=== PATIENT | female | born 1990 | race Caucasian/White ===

== ENCOUNTER 2017-05-01 07:24 | Inpatient (IN) | payer OTHER ==
[~2017-05-01] VITALS: Ht 160 cm; Wt 102.7 kg
[2017-05-01] VITALS (56 sets, daily range): BP systolic 91–166; BP diastolic 53–102
[2017-05-01 09:04] LABS: BASOPHIL COUNT 0.1 K/uL (0-0.1); EOSINOPHIL COUNT 0.1 K/uL (0-0.3); HEMATOCRIT 38.9 % (36.0-46.0); IMMATURE GRANULOCYTE (%) 0.6 % (0.0-0.7); IMMATURE GRANULOCYTE COUNT 0.1 K/uL; INSTRUMENT ABS NEUTROPHIL CT 7.7 K/uL; LYMPHOCYTE COUNT 1.7 K/uL (1.0-2.8); MCH 28.3 PG (29.0-34.0); MCHC 32.9 G/DL (30.0-36.0); MCV 85.9 FL (83-99); MEAN PLAT.VOLUME 12.4 uM^3 (9.5-12.4); MONOCYTE (%) 5.6 % (3-12); MONOCYTE COUNT 0.6 K/uL (0-0.8); NEUTROPHIL (%) 75.3 % (45-76); NEUTROPHIL COUNT 7.7 K/uL (1.8-6.4); PLATELET COUNT 203 K/uL (156-360); RBC DIS.WIDTH-CV 14.5 % (11.8-14.6); RBC DIS.WIDTH-SD 45.1 % (39-53); RED BLOOD COUNT 4.53 M/uL (3.80-5.20); WHITE BLOOD COUNT 10.2 K/uL (4.1-10.2)
[2017-05-01] MEDS ORDERED: ZANTAC150 MG PO (10:24)
[2017-05-01] MEDS ORDERED: PRENATAL + DHA1 EAC1 PO (10:24)
[2017-05-02] VITALS (10 sets, daily range): BP systolic 111–148; BP diastolic 67–90
[2017-05-02] MEDS ORDERED: ENDOCET 5-3251 EACH PO (08:54)
[2017-05-02] MEDS ORDERED: IBUPROFEN800 MG PO (08:54)
[2017-05-03 06:04] LABS: HEMATOCRIT 27.8 % (36.0-46.0); MCH 27.6 PG (29.0-34.0); MCV 86.3 FL (83-99); RBC DIS.WIDTH-CV 14.6 % (11.8-14.6); RBC DIS.WIDTH-SD 45.5 % (39-53); WHITE BLOOD COUNT 12.7 K/uL (4.1-10.2)
[2017-05-03 06:11] LABS: RED BLOOD COUNT 3.22 M/uL (3.80-5.20)
[2017-05-03 07:19] VITALS: BP 110/58
[2017-05-03 07:58] LABS: EOSINOPHIL (%) 0.5 % (0-5); EOSINOPHIL COUNT 0.1 K/uL (0-0.3); IMMATURE GRANULOCYTE (%) 0.6 % (0.0-0.7); IMMATURE GRANULOCYTE COUNT 0.1 K/uL; INSTRUMENT ABS NEUTROPHIL CT 9.4 K/uL; LYMPHOCYTE COUNT 2.4 K/uL (1.0-2.8); MEAN PLAT.VOLUME 12.4 uM^3 (9.5-12.4); MONOCYTE (%) 5.9 % (3-12); MONOCYTE COUNT 0.8 K/uL (0-0.8); NEUTROPHIL (%) 73.7 % (45-76); NEUTROPHIL COUNT 9.4 K/uL (1.8-6.4); PLAT.SUFFICIENCY DECREASED
[2017-05-03 08:01] LABS: PLATELET COUNT 131 K/uL (156-360)
[2017-05-03 11:48] VITALS: BP 100/51
[2017-05-03 15:13] VITALS: BP 110/71
== END 2017-05-05 14:18 | disposition home health service (06) | DRG 765 ==
LOC: LDRP-OP 07:24 → 2WEST 07:25 → LDRP-OP 05-20 10:14
PROVIDERS: Advanced Practice Midwife; Obstetrics & Gynecology
PROC: 3E0P7GC Introduction of Other Therapeutic Substance into Female Reproductive, Via Natural or Artificial Opening (ICD-10-PCS; 2017-05-01)
PROC: 3E0S3BZ Introduction of Anesthetic Agent into Epidural Space, Percutaneous Approach (ICD-10-PCS; 2017-05-01)
PROC: 10D00Z1 Extraction of Products of Conception, Low, Open Approach (ICD-10-PCS; principal; 2017-05-02)
DX: O48.0 Post-term pregnancy (principal); O10.02 Pre-existing essential hypertension complicating childbirth; D62 Acute posthemorrhagic anemia; Z68.41 Body mass index [BMI] 40.0-44.9, adult; O99.214 Obesity complicating childbirth; Z37.0 Single live birth; Z3A.41 41 weeks gestation of pregnancy; O77.0 Labor and delivery complicated by meconium in amniotic fluid; O61.0 Failed medical induction of labor; O62.1 Secondary uterine inertia; L30.9 Dermatitis, unspecified; O99.72 Diseases of the skin and subcutaneous tissue complicating childbirth; E66.9 Obesity, unspecified; K21.9 Gastro-esophageal reflux disease without esophagitis; O76 Abnormality in fetal heart rate and rhythm complicating labor and delivery; O99.02 Anemia complicating childbirth; O99.62 Diseases of the digestive system complicating childbirth; O99.824 Streptococcus B carrier state complicating childbirth; K58.9 Irritable bowel syndrome, unspecified; Z88.2 Allergy status to sulfonamides; Z80.3 Family history of malignant neoplasm of breast; Z80.6 Family history of leukemia; Z80.7 Family history of other malignant neoplasms of lymphoid, hematopoietic and related tissues; Z82.49 Family history of ischemic heart disease and other diseases of the circulatory system; Z80.43 Family history of malignant neoplasm of testis; Z82.61 Family history of arthritis; Z82.0 Family history of epilepsy and other diseases of the nervous system
CPT/HCPCS: 85025; 88307; C1755; G0378; J0690; J1170; J2175; J2274; J2405; J2540; J2795; J3010; J7120

== ENCOUNTER 2017-05-29 19:54 | Inpatient (IN) | payer OTHER ==
[~2017-05-29] VITALS: Ht 160 cm; Wt 93.8 kg
[~2017-05-29 19:54] MED LIST: ENDOCET 5-3251 EACH PO; IBUPROFEN800 MG PO; PRENATAL + DHA1 EAC1 PO; ZANTAC150 MG PO
[2017-05-29 20:26] LABS: BASOPHIL (%) 0.4 % (0-1); BASOPHIL COUNT 0.1 K/uL (0-0.1); EOSINOPHIL (%) 1.8 % (0-5); EOSINOPHIL COUNT 0.3 K/uL (0-0.3); HEMATOCRIT 25.6 % (36.0-46.0); LYMPHOCYTE (%) 25.5 % (15-42); LYMPHOCYTE COUNT 4.4 K/uL (1.0-2.8); MCH 27.7 PG (29.0-34.0); MCHC 31.3 G/DL (30.0-36.0); MCV 88.6 FL (83-99); MONOCYTE COUNT 0.7 K/uL (0-0.8); NEUTROPHIL (%) 67.3 % (45-76); NEUTROPHIL COUNT 11.7 K/uL (1.8-6.4); RBC DIS.WIDTH-SD 45.2 % (39-53); RED BLOOD COUNT 2.89 M/uL (3.80-5.20); WHITE BLOOD COUNT 17.4 K/uL (4.1-10.2)
[2017-05-29 20:27] LABS: PLATELET COUNT 352 K/uL (156-360)
[2017-05-29 20:34] LABS: CHLORIDE 113 mEq/L (99-109); POTASSIUM 3.6 mEq/L (3.7-5.4); SODIUM 141 mEq/L (136-147)
[2017-05-29 20:36] LABS: GLUCOSE 207 mg/dL (70-99)
[2017-05-29 20:39] LABS: GFR ESTIMATE (CALCULATED) > 59 mL/min/
[2017-05-29 20:40] LABS: UREA NITROGEN (BUN) 18 mg/dL (9-23)
[2017-05-29] MEDS ORDERED: IRON325 M1 PO (23:48)
[2017-05-30] VITALS (7 sets, daily range): BP systolic 96–133; BP diastolic 53–67
[2017-05-30 07:33] LABS: HEMATOCRIT 24.9 % (36.0-46.0); HEMOGLOBIN 7.9 G/DL (11.9-15.5); MCH 28.1 PG (29.0-34.0); MCHC 31.7 G/DL (30.0-36.0); MCV 88.6 FL (83-99); RBC DIS.WIDTH-CV 14.3 % (11.8-14.6); RED BLOOD COUNT 2.81 M/uL (3.80-5.20); WHITE BLOOD COUNT 13.5 K/uL (4.1-10.2)
[2017-05-30 08:01] LABS: PLAT.SUFFICIENCY ADEQUATE
[2017-05-30 08:35] LABS: PLATELET COUNT 228 K/uL (156-360)
== END 2017-05-30 18:00 | disposition home or self-care (01) | DRG 776 ==
LOC: EME 19:54 → 2EAST 23:20 → EDOF 23:20 → ENRESERV 23:39 → 2EAST 05-30 02:32
PROVIDERS: Emergency Medicine; Obstetrics & Gynecology
PROC: 30233N1 Transfusion of Nonautologous Red Blood Cells into Peripheral Vein, Percutaneous Approach (ICD-10-PCS; principal; 2017-05-29)
DX: O99.03 Anemia complicating the puerperium (principal); D62 Acute posthemorrhagic anemia; N93.9 Abnormal uterine and vaginal bleeding, unspecified; I95.9 Hypotension, unspecified; I10 Essential (primary) hypertension; E66.9 Obesity, unspecified; Z68.36 Body mass index [BMI] 36.0-36.9, adult; Z88.2 Allergy status to sulfonamides
CPT/HCPCS: 74000; 76856; 80048; 85025; 85027; 86850; 86900; 86901; 86920; 99281; 99285; J7030; J7120; P9016

== ENCOUNTER 2017-06-10 06:59 | Inpatient (IN) | payer OTHER ==
[2017-06-10] VITALS (11 sets, daily range): BP systolic 68–130; BP diastolic 50–84
[~2017-06-10] VITALS: Ht 160 cm; Wt 94.2 kg
[~2017-06-10 06:59] MED LIST changes: +IRON325 M1 PO
[2017-06-10 08:07] LABS: BASOPHIL (%) 0.4 % (0-1); BASOPHIL COUNT 0.1 K/uL (0-0.1); EOSINOPHIL (%) 2.8 % (0-5); EOSINOPHIL COUNT 0.3 K/uL (0-0.3); HEMATOCRIT 25.3 % (36.0-46.0); HEMOGLOBIN 7.7 G/DL (11.9-15.5); LYMPHOCYTE (%) 19.7 % (15-42); LYMPHOCYTE COUNT 2.4 K/uL (1.0-2.8); MCH 27.9 PG (29.0-34.0); MCHC 30.4 G/DL (30.0-36.0); MCV 91.7 FL (83-99); MONOCYTE (%) 4.2 % (3-12); MONOCYTE COUNT 0.5 K/uL (0-0.8); NEUTROPHIL (%) 71.9 % (45-76); NEUTROPHIL COUNT 8.6 K/uL (1.8-6.4); NRBC (%) 0.3 /100 WBC (0-0); RBC DIS.WIDTH-CV 15.9 % (11.8-14.6); RBC DIS.WIDTH-SD 50.7 % (39-53); RED BLOOD COUNT 2.76 M/uL (3.80-5.20)
[2017-06-10 08:11] LABS: PLATELET COUNT 344 K/uL (156-360)
[2017-06-10 08:41] LABS: CHLORIDE 111 MEQ/L (99-109); CREATININE 0.8 MG/DL (0.6-1.3); GFR ESTIMATE (CALCULATED) > 59 mL/min/; GLUCOSE 110 mg/dL (70-99); POTASSIUM 3.6 MEQ/L (3.7-5.4); SODIUM 142 MEQ/L (136-147); UREA NITROGEN (BUN) 14 mg/dL (9-23)
[2017-06-10 09:00] LABS: QUANTITATIVE HCG < 4.0 MIU/ML
[2017-06-10] MEDS ORDERED: INDERAL10 MG PO (10:05)
[2017-06-10 13:44] LABS: HEMATOCRIT 29.3 % (36.0-46.0); HEMOGLOBIN 9.1 G/DL (11.9-15.5); MCH 27.7 PG (29.0-34.0); MCHC 31.1 G/DL (30.0-36.0); MCV 89.1 FL (83-99); PLATELET COUNT 376 K/uL (156-360); RBC DIS.WIDTH-CV 15.4 % (11.8-14.6); RBC DIS.WIDTH-SD 48.1 % (39-53); RED BLOOD COUNT 3.29 M/uL (3.80-5.20); WHITE BLOOD COUNT 14.8 K/uL (4.1-10.2)
[2017-06-10] MEDS ORDERED: Methergine PO (14:19)
[2017-06-10] MEDS ORDERED: SPRINTEC1 EACH PO (14:19)
[2017-06-10 18:07] LABS: HEMATOCRIT 24.5 % (36.0-46.0); HEMOGLOBIN 7.8 G/DL (11.9-15.5); MCHC 31.8 G/DL (30.0-36.0); MCV 91.1 FL (83-99); NRBC (%) 0.1 /100 WBC (0-0); RBC DIS.WIDTH-CV 15.9 % (11.8-14.6); RBC DIS.WIDTH-SD 49.6 % (39-53); RED BLOOD COUNT 2.69 M/uL (3.80-5.20); WHITE BLOOD COUNT 29.3 K/uL (4.1-10.2)
[2017-06-10 18:10] LABS: PLATELET COUNT 498 K/uL (156-360)
[2017-06-10 18:15] LABS: INTER. NORMALIZED RATIO 1.1
[2017-06-10 18:17] LABS: PTT 22.8 SEC (25-37)
[2017-06-10 18:19] LABS: ALBUMIN 2.6 G/DL (3.2-4.8); CHLORIDE 111 MEQ/L (99-109); POTASSIUM 3.5 MEQ/L (3.7-5.4); SODIUM 139 MEQ/L (136-147); TOTAL BILIRUBIN 0.4 MG/DL (0.0-1.0)
[2017-06-10 18:24] LABS: ALKALINE PHOSPHATASE 83 IU/L (3-129); ALT (GPT) 8 IU/L (3-49); AST (GOT) 8 IU/L (2-34); CREATININE 0.9 MG/DL (0.6-1.3); GFR ESTIMATE (CALCULATED) > 59 mL/min/; TOTAL PROTEIN 4.7 G/DL (6.4-8.3); UREA NITROGEN (BUN) 14 mg/dL (9-23)
[2017-06-10 18:35] LABS: GLUCOSE 191 mg/dL (70-99)
[2017-06-10 23:01] LABS: BASE EXCESS -5.1 mEq/L (-3 to +3); BICARBONATE 19.9 mEq/L (22-26); CARBOXY HGB 2.2 % (0-5); COMMENTS - BLOOD GASES C+A+; DEVICE VENTILATOR; FI02 30 %; MECHANICAL RATE 14 resp/min; MODE AC; PCO2 36 mm Hg (35-45); PEEP 5 CM/H20; PO2 129 mm Hg (80-100); SITE RR; TIDAL VOLUME 450 ML; TOTAL RESP RATE 14 resp/min; pH 7.35 (7.35-7.45)
[2017-06-10 23:33] LABS: CHLORIDE 111 mEq/L (99-109); INTER. NORMALIZED RATIO 1.2; POTASSIUM 4.2 mEq/L (3.7-5.4); SODIUM 139 mEq/L (136-147)
[2017-06-10 23:34] LABS: GLUCOSE 133 mg/dL (70-99)
[2017-06-10 23:35] LABS: PTT 23.5 SEC (25-37)
[2017-06-10 23:38] LABS: CREATININE 0.8 mg/dL (0.6-1.3); GFR ESTIMATE (CALCULATED) > 59 mL/min/
[2017-06-10 23:39] LABS: UREA NITROGEN (BUN) 10 mg/dL (9-23)
[2017-06-10 23:40] LABS: HEMOGLOBIN 11.4 G/DL (11.9-15.5); MCH 29.2 PG (29.0-34.0); MCHC 33.5 G/DL (30.0-36.0); MCV 87.2 FL (83-99); NRBC (%) 0.2 /100 WBC (0-0); RBC DIS.WIDTH-SD 47.3 % (39-53); WHITE BLOOD COUNT 18.9 K/uL (4.1-10.2)
[2017-06-11] VITALS (22 sets, daily range): BP systolic 100–148; BP diastolic 55–93
[2017-06-11 00:13] LABS: BASOPHIL (%) 0.2 % (0-1); EOSINOPHIL (%) 0 % (0-5); IMMATURE GRANULOCYTE (%) 1.8 % (0.0-0.7); LYMPHOCYTE (%) 7.8 % (15-42); LYMPHOCYTE COUNT 1.5 K/uL (1.0-2.8); MONOCYTE (%) 4.3 % (3-12); MONOCYTE COUNT 0.8 K/uL (0-0.8); NEUTROPHIL (%) 85.9 % (45-76); NEUTROPHIL COUNT 16.2 K/uL (1.8-6.4); PLAT.SUFFICIENCY ADEQUATE
[2017-06-11 00:14] LABS: PLATELET COUNT 186 K/uL (156-360)
[2017-06-11 03:40] LABS: HEMATOCRIT 32.3 % (36.0-46.0); HEMOGLOBIN 10.9 G/DL (11.9-15.5); MCV 86.1 FL (83-99)
[2017-06-11 03:55] LABS: ALBUMIN 2.7 g/dL (3.2-4.8); CHLORIDE 111 mEq/L (99-109); POTASSIUM 4.1 mEq/L (3.7-5.4); SODIUM 140 mEq/L (136-147)
[2017-06-11 03:56] LABS: MAGNESIUM 1.6 mg/dL (1.3-2.7)
[2017-06-11 03:57] LABS: GLUCOSE 132 mg/dL (70-99)
[2017-06-11 03:58] LABS: TOTAL PROTEIN 4.7 g/dL (6.4-8.3)
[2017-06-11 03:59] LABS: TOTAL BILIRUBIN 0.7 mg/dL (0.0-1.0)
[2017-06-11 04:01] LABS: ALKALINE PHOSPHATASE 63 IU/L (3-129); CREATININE 0.8 mg/dL (0.6-1.3); GFR ESTIMATE (CALCULATED) > 59 mL/min/; PHOSPHORUS 4.5 mg/dL (2.5-4.9)
[2017-06-11 04:02] LABS: UREA NITROGEN (BUN) 10 mg/dL (9-23)
[2017-06-11 04:03] LABS: AST (GOT) 13 IU/L (2-34)
[2017-06-11 04:04] LABS: ALT (GPT) 13 IU/L (3-49)
[2017-06-11 05:35] LABS: BASE EXCESS -2.5 mEq/L (-3 to +3); BICARBONATE 21.4 mEq/L (22-26); CARBOXY HGB 2.2 % (0-5); METHEMOGLOBIN 2.1 % (0-1.5); PCO2 33 mm Hg (35-45); PO2 131 mm Hg (80-100); pH 7.42 (7.35-7.45)
[2017-06-11 05:36] LABS: COMMENTS - BLOOD GASES C+A+; DEVICE VENTILATOR; FI02 30 %; MECHANICAL RATE 14 resp/min; MODE AC; PEEP 5 CM/H20; SITE RR; TIDAL VOLUME 450 ML; TOTAL RESP RATE 18 resp/min
[2017-06-11 08:03] LABS: THYROTROPIN (TSH) 1.1 MIU/L (0.4-5.5)
[2017-06-11 08:40] LABS: PROLACTIN 62.4 NG/ML
[2017-06-12 04:14] VITALS: BP 125/77
[2017-06-12 06:50] LABS: BASOPHIL (%) 0.5 % (0-1); BASOPHIL COUNT 0.1 K/uL (0-0.1); EOSINOPHIL (%) 3.1 % (0-5); EOSINOPHIL COUNT 0.5 K/uL (0-0.3); HEMATOCRIT 27.9 % (36.0-46.0); IMMATURE GRANULOCYTE (%) 0.6 % (0.0-0.7); LYMPHOCYTE (%) 13.1 % (15-42); MCH 28.3 PG (29.0-34.0); MCHC 32.3 G/DL (30.0-36.0); MCV 87.7 FL (83-99); MONOCYTE (%) 5.3 % (3-12); MONOCYTE COUNT 0.8 K/uL (0-0.8); NEUTROPHIL (%) 77.4 % (45-76); NEUTROPHIL COUNT 11.9 K/uL (1.8-6.4); PLATELET COUNT 163 K/uL (156-360); RBC DIS.WIDTH-CV 16.2 % (11.8-14.6); RBC DIS.WIDTH-SD 50.8 % (39-53); RED BLOOD COUNT 3.18 M/uL (3.80-5.20); WHITE BLOOD COUNT 15.3 K/uL (4.1-10.2)
[2017-06-12 07:10] VITALS: BP 111/64
[2017-06-12 07:59] LABS: ALBUMIN 2.4 G/DL (3.2-4.8); ALKALINE PHOSPHATASE 56 IU/L (3-129); ALT (GPT) 8 IU/L (3-49); AST (GOT) 10 IU/L (2-34); CHLORIDE 110 MEQ/L (99-109); CREATININE 0.9 MG/DL (0.6-1.3); GFR ESTIMATE (CALCULATED) > 59 mL/min/; GLUCOSE 73 mg/dL (70-99); POTASSIUM 3.7 MEQ/L (3.7-5.4); SODIUM 142 MEQ/L (136-147); TOTAL BILIRUBIN 0.8 MG/DL (0.0-1.0); UREA NITROGEN (BUN) 11 mg/dL (9-23)
[2017-06-12 12:00] VITALS: BP 126/69
[2017-06-12 15:10] VITALS: BP 118/65
[2017-06-12 23:49] VITALS: BP 108/59
[2017-06-13 06:14] LABS: BASOPHIL (%) 0.4 % (0-1); EOSINOPHIL (%) 4.4 % (0-5); EOSINOPHIL COUNT 0.5 K/uL (0-0.3); HEMATOCRIT 24.9 % (36.0-46.0); HEMOGLOBIN 8.2 G/DL (11.9-15.5); IMMATURE GRANULOCYTE (%) 0.4 % (0.0-0.7); LYMPHOCYTE (%) 18.9 % (15-42); LYMPHOCYTE COUNT 1.9 K/uL (1.0-2.8); MCH 29.5 PG (29.0-34.0); MCHC 32.9 G/DL (30.0-36.0); MCV 89.6 FL (83-99); MONOCYTE (%) 4.7 % (3-12); MONOCYTE COUNT 0.5 K/uL (0-0.8); NEUTROPHIL (%) 71.2 % (45-76); NEUTROPHIL COUNT 7.3 K/uL (1.8-6.4); PLATELET COUNT 142 K/uL (156-360); RBC DIS.WIDTH-CV 16.3 % (11.8-14.6); RBC DIS.WIDTH-SD 53.3 % (39-53); RED BLOOD COUNT 2.78 M/uL (3.80-5.20); WHITE BLOOD COUNT 10.2 K/uL (4.1-10.2)
[2017-06-13 06:54] LABS: ALBUMIN 2.2 G/DL (3.2-4.8); ALKALINE PHOSPHATASE 68 IU/L (3-129); ALT (GPT) 13 IU/L (3-49); CHLORIDE 107 MEQ/L (99-109); CREATININE 0.8 MG/DL (0.6-1.3); GFR ESTIMATE (CALCULATED) > 59 mL/min/; GLUCOSE 82 mg/dL (70-99); POTASSIUM 3.3 MEQ/L (3.7-5.4); SODIUM 140 MEQ/L (136-147); TOTAL PROTEIN 3.9 G/DL (6.4-8.3); UREA NITROGEN (BUN) 9 mg/dL (9-23)
[2017-06-13 06:56] LABS: AST (GOT) 16 IU/L (2-34); TOTAL BILIRUBIN 0.4 MG/DL (0.0-1.0)
[2017-06-13 07:55] VITALS: BP 119/67
[2017-06-13 15:50] VITALS: BP 100/57
[2017-06-13] MEDS ORDERED: AUGMENTIN500 MG PO (17:40)
[2017-06-20 16:21] LABS: FACTOR VIII ACTIVITY+ 255 % (50-180); Ristocetin Cofactor Activity 235 % (42-200); VON WILLEBRAND FACTOR ANTIGEN 202 % (50-217); vWB APTT 28 sec (22-34)
== END 2017-06-13 19:31 | disposition home or self-care (01) | DRG 769 ==
LOC: EME 06:59 → EDOF 09:20 → 4WEST 09:20 → EDOF 09:20 → CANRESERV 09:26 → ENRESERV 09:26 → CANRESERV 09:35 → ENRESERV 09:37 → 2EAST 12:13 → ENRESERV 20:59 → 2EAST 21:19 → 4WEST 21:48 → 2EAST 06-11 10:28 → 4WEST 06-11 10:28 → ENRESERV 06-11 15:10 → 2EAST 06-11 16:49
PROVIDERS: Emergency Medicine; Obstetrics & Gynecology; Obstetrics & Gynecology Gynecology; Obstetrics & Gynecology Obstetrics; Specialist
DX: O72.2 Delayed and secondary postpartum hemorrhage (principal); N99.71 Accidental puncture and laceration of a genitourinary system organ or structure during a genitourinary system procedure; Y65.8 Other specified misadventures during surgical and medical care; O90.81 Anemia of the puerperium; D62 Acute posthemorrhagic anemia; O99.53 Diseases of the respiratory system complicating the puerperium; J95.821 Acute postprocedural respiratory failure; O86.12 Endometritis following delivery; O90.89 Other complications of the puerperium, not elsewhere classified; O99.89 Other specified diseases and conditions complicating pregnancy, childbirth and the puerperium; I95.89 Other hypotension; O99.215 Obesity complicating the puerperium; E66.9 Obesity, unspecified; Z68.36 Body mass index [BMI] 36.0-36.9, adult; O10.93 Unspecified pre-existing hypertension complicating the puerperium; G89.18 Other acute postprocedural pain
CPT/HCPCS: 36600; 70450; 71010; 72197; 72198; 74000; 76856; 80048; 80048 91; 80053; 80170; 82803; 82948; 83520 90; 83735; 84100; 84146; 84443; 84702; 85014; 85018; 85025; 85025 91; 85027; 85240 90; 85245 90; 85246 90; 85247 90; 85610; 85730; 85730 90; 86850; 86900; 86901; 86920; 87641; 93005; 94002; 99281; 99285; C1729; G0378; J0290; J0690; J1050; J1100; J1410; J1580; J1885; J2250; J2704; J3010; J3475; J3480; J7030; J7050; J7120; P9016; P9017; P9045; P9047; S0028; S0030

== ENCOUNTER 2017-06-17 02:50 | Inpatient (IN) | payer OTHER ==
[~2017-06-17] VITALS: Ht 160 cm; Wt 93.8 kg
[~2017-06-17 02:50] MED LIST changes: +AUGMENTIN500 MG PO; +INDERAL10 MG PO; +Methergine PO; +SPRINTEC1 EACH PO
[2017-06-17 03:27] LABS: BASOPHIL (%) 0.4 % (0-1); BASOPHIL COUNT 0.1 K/uL (0-0.1); EOSINOPHIL (%) 1.4 % (0-5); EOSINOPHIL COUNT 0.3 K/uL (0-0.3); HEMATOCRIT 25.9 % (36.0-46.0); HEMOGLOBIN 8.3 G/DL (11.9-15.5); IMMATURE GRANULOCYTE (%) 0.9 % (0.0-0.7); LYMPHOCYTE (%) 12.9 % (15-42); LYMPHOCYTE COUNT 2.3 K/uL (1.0-2.8); MCH 28.9 PG (29.0-34.0); MCV 90.2 FL (83-99); MONOCYTE (%) 4.3 % (3-12); MONOCYTE COUNT 0.8 K/uL (0-0.8); NEUTROPHIL (%) 80.1 % (45-76); NEUTROPHIL COUNT 14.1 K/uL (1.8-6.4); NRBC (%) 0.1 /100 WBC (0-0); RBC DIS.WIDTH-CV 14.9 % (11.8-14.6); RBC DIS.WIDTH-SD 48.6 % (39-53); RED BLOOD COUNT 2.87 M/uL (3.80-5.20); WHITE BLOOD COUNT 17.6 K/uL (4.1-10.2)
[2017-06-17 03:35] LABS: PLATELET COUNT 354 K/uL (156-360)
[2017-06-17 03:36] LABS: ALBUMIN 2.7 g/dL (3.2-4.8); CHLORIDE 105 mEq/L (99-109); POTASSIUM 4.1 mEq/L (3.7-5.4); SODIUM 136 mEq/L (136-147)
[2017-06-17 03:38] LABS: PTT 21.6 SEC (25-37)
[2017-06-17 03:42] LABS: ALKALINE PHOSPHATASE 80 IU/L (3-129); CREATININE 0.8 mg/dL (0.6-1.3); GFR ESTIMATE (CALCULATED) > 59 mL/min/
[2017-06-17 03:43] LABS: UREA NITROGEN (BUN) 15 mg/dL (9-23)
[2017-06-17 03:49] LABS: ALT (GPT) 35 IU/L (3-49); AST (GOT) 19 IU/L (2-34); GLUCOSE 146 mg/dL (70-99); MAGNESIUM 1.9 mg/dL (1.3-2.7); TOTAL BILIRUBIN 0.3 mg/dL (0.0-1.0); TOTAL PROTEIN 5.6 g/dL (6.4-8.3)
[2017-06-17 03:51] LABS: QUANTITATIVE HCG < 4.0 MIU/ML
[2017-06-17] MEDS ORDERED: SPRINTEC1 EACH PO (06:29)
[2017-06-17] MEDS ORDERED: COLACE100 MG PO (06:31)
[2017-06-17] MEDS ORDERED: COLACE CLEAR50 MG PO (06:32)
[2017-06-17 06:33] VITALS: BP 121/57
[2017-06-17 14:53] VITALS: BP 108/54
[2017-06-17 19:45] VITALS: BP 115/59
[2017-06-17 23:42] VITALS: BP 100/53
[2017-06-18] VITALS (9 sets, daily range): BP systolic 104–137; BP diastolic 54–72
[2017-06-18 07:59] LABS: BASOPHIL (%) 0.5 % (0-1); EOSINOPHIL COUNT 0.3 K/uL (0-0.3); HEMATOCRIT 22.5 % (36.0-46.0); HEMOGLOBIN 7.1 G/DL (11.9-15.5); IMMATURE GRANULOCYTE (%) 0.6 % (0.0-0.7); LYMPHOCYTE (%) 20.1 % (15-42); LYMPHOCYTE COUNT 1.8 K/uL (1.0-2.8); MCH 28.9 PG (29.0-34.0); MCHC 31.6 G/DL (30.0-36.0); MCV 91.5 FL (83-99); MONOCYTE COUNT 0.4 K/uL (0-0.8); NEUTROPHIL (%) 70.8 % (45-76); NEUTROPHIL COUNT 6.3 K/uL (1.8-6.4); PLATELET COUNT 329 K/uL (156-360); RBC DIS.WIDTH-CV 15.1 % (11.8-14.6); RBC DIS.WIDTH-SD 50.1 % (39-53); RED BLOOD COUNT 2.46 M/uL (3.80-5.20); WHITE BLOOD COUNT 8.8 K/uL (4.1-10.2)
[2017-06-18 09:03] LABS: FIBRINOGEN 569 mg/dL (150-450)
[2017-06-18 13:47] LABS: D-DIMER LATEX NEGATIVE
== END 2017-06-18 22:09 | disposition short-term general hospital (02) | DRG 776 ==
LOC: EME → EDBD 02:50 → EDOF 04:42 → 2EAST 04:42 → ENRESERV 04:43 → CANRESERV 04:48 → ENRESERV 04:48 → 2EAST 06:07
PROVIDERS: Emergency Medicine; Internal Medicine Medical Oncology; Obstetrics & Gynecology
PROC: 30233N1 Transfusion of Nonautologous Red Blood Cells into Peripheral Vein, Percutaneous Approach (ICD-10-PCS; principal; 2017-06-18)
DX: O72.2 Delayed and secondary postpartum hemorrhage (principal); O90.81 Anemia of the puerperium; D62 Acute posthemorrhagic anemia; N93.8 Other specified abnormal uterine and vaginal bleeding; O99.89 Other specified diseases and conditions complicating pregnancy, childbirth and the puerperium; I95.1 Orthostatic hypotension
CPT/HCPCS: 36415; 80053; 83520 90; 83735; 84702; 85025; 85240 90; 85245 90; 85246 90; 85247 90; 85378; 85384; 85610; 85730; 85730 90; 86850; 86900; 86901; 86920; 99281; 99285; J7030; J7050; P9016